=== PATIENT | female | born 1980 | race American Indian/Alaskan Native ===

== ENCOUNTER 2018-12-28 14:03 | Emergency (ER) | payer OTHER ==
--- NOTE | 2018-12-28 14:14 | Emergency Department Report ---
Blank Doc - Documentation Documentation: 38-year-old female that presents with right sided abdominal pain. Denies any vaginal bleeding. Stated is 19 weeks . This initial assessment/diagnostic orders/clinical plan/treatment(s) is/are subject to change based on patient's health status, clinical progression and re- assessment by fellow clinical providers in the ED. Further treatment and workup at subsequent clinical providers discretion. Patient/guardians urged not to elope from the ED as their condition may be serious if not clinically assessed and managed. Initial orders include: 1- Patient sent to [facility] for further evaluation and treatment 2- UA 3- labs 4- US OB
[2018-12-28 15:17] LABS: Bacteria,Urine 2+ /HPF (Negative); Bilirubin,Urine NEG (Negative); Blood,Urine NEG (Negative); Color,Urine Yellow (Yellow); Mucus,Urine 1+ /HPF
[2018-12-28 15:34] LABS: Basophils % (Auto) 0.2 % (0.0-1.8); Eosinophils % (Auto) 0.2 % (0.0-4.3); Hematocrit 30.9 % (30.3-42.9); Hemoglobin 10.6 gm/dl (10.1-14.3); Lymphocytes # (Auto) 0.8 K/mm3 (1.2-5.4); Lymphocytes % (Auto) 7.3 % (13.4-35.0); Mean Corpuscular HGB Conc 34 % (30-34); Mean Corpuscular Volume 89 fl (79-97); Monocytes # (Auto) 0.5 K/mm3 (0.0-0.8); Monocytes % (Auto) 5.1 % (0.0-7.3); Platelet Count 216 K/mm3 (140-440); Red Blood Count 3.46 M/mm3 (3.65-5.03); Red Cell Distribution Width 13.5 % (13.2-15.2)
[2018-12-28 15:58] LABS: Alanine Aminotransferase 8 units/L (7-56); Albumin 3.4 g/dL (3.9-5); BUN/Creatinine Ratio 14; Blood Urea Nitrogen 7 mg/dL (7-17); Hemolysis Index 7
[2018-12-28] MEDS ORDERED: ROCEPHIN IM ONE (16:15)
[2018-12-28] MEDS ORDERED: XYLOCAINE 1% MPF 5 mL INFILTRATI ONE (16:15)
--- NOTE | 2018-12-28 16:18 | Ultrasound Report ---
OB ULTRASOUND >= 14 WEEKS FETUS INDICATION: pelvic pain COMPARISON: None TECHNIQUE: Transabdominal ultrasound images. FINDINGS: A single gestation intrauterine is present with cephalic presentation. The placenta is post erior fundal, grade 0 and free of the cervical os. heart tones measure 157 bpm. The cervix mauro sures 3.5 cm. Amniotic fluid volume is qualitatively normal. LAMBERTO was not measured. The intracranial structures, spine, four-chamber heart, diaphragm, umbilical cord, cord inserti on, stomach, kidneys, and bladder show no sonographic abnormality. Biparietal diameter is 4.2 cm which equals 18 weeks 6 days. Head circumference is 16.2 cm which equals 19 weeks 0 days. Abdominal circumference is 13.5 cm which equals 19 weeks 0 days. Femur length is 3.0 cm which equals 19 weeks 2 days. Overall estimated sonographic age is 19 weeks 0 days. EDC: 05/24/2019. HC/AC ratio: 1.2 Cephalic index: 79.2 Estimated weight: 274 g +/- 41 g. Additional findings: Moderate maternal right hydronephrosis is identified. IMPRESSION: Viable single intrauterine as described. No acute abnormality is detected. Moderate maternal right hydronephrosis. Signer Name: Axel Doll Jr, MD Signed: 12/28/2018 4:14 PM Workstation Name: [id number]
--- NOTE | 2018-12-28 17:52 | Emergency Department Report ---
ED Abdominal Pain HPI - General Chief Complaint: Abdominal Pain Stated Complaint: 19 WKS /SIDE PAIN Time Seen by Provider: 12/28/18 14:13 Source: patient Mode of arrival: Ambulatory Limitations: No Limitations - History of Present Illness Initial Comments: pt is a 38-year-old female who presents emergency room with complaints of right flank pain that began 3 days ago. She has associated nausea. She is tolerating by mouth intake. She denies any fever, vomiting, vaginal bleeding, vaginal discharge. She is currently 19 weeks . LNMP was August 05. pt states that she goes to a clinic on [address] but does not know the name of it. - Related Data Previous Rx's Medication Instructions Recorded Last Taken Type Ondansetron [Zofran Odt] 4 mg PO Q8HR PRN #7 tab.rapdis 12/28/18 Unknown Rx cephALEXin [Keflex] 500 mg PO BID 7 Days #14 cap 12/28/18 Unknown Rx Allergies Allergy/AdvReac Type Severity Reaction Status Date / Time No Known Allergies Allergy Unverified 12/28/18 14:06 ED Review of Systems ROS: Stated complaint: 19 WKS /SIDE PAIN Other details as noted in HPI Comment: All other systems reviewed and negative ED Past Medical Hx - Past Medical History Previous Medical History?: No - Surgical History Past Surgical History?: No - Social History Smoking Status: Never Smoker Substance Use Type: None - Medications Home Medications: Home Medications Medication Instructions Recorded Confirmed Last Taken Type Ondansetron [Zofran Odt] 4 mg PO Q8HR PRN #7 tab.rapdis 12/28/18 Unknown Rx cephALEXin [Keflex] 500 mg PO BID 7 Days #14 cap 12/28/18 Unknown Rx ED Physical Exam - General Limitations: No Limitations General appearance: alert, in no apparent distress - Head Head exam: Present: atraumatic, normocephalic - Eye Eye exam: Present: normal appearance - ENT ENT exam: Present: mucous membranes moist - Respiratory Respiratory exam: Present: normal lung sounds bilaterally. Absent: respiratory distress, wheezes, rales, rhonchi, stridor, chest wall tenderness, accessory muscle use, decreased breath sounds, prolonged expiratory - Cardiovascular Cardiovascular Exam: Present: regular rate, normal rhythm, normal heart sounds. Absent: systolic murmur, diastolic murmur, rubs, gallop - GI/Abdominal GI/Abdominal exam: Present: soft, normal bowel sounds. Absent: distended, tenderness, guarding, rebound, rigid - Neurological Exam Neurological exam: Present: alert, oriented X3 - Psychiatric Psychiatric exam: Present: normal affect, normal mood - Skin Skin exam: Present: warm, dry, intact ED Course Vital Signs 12/28/18 12/28/18 14:13 18:09 Temperature 98.4 F Pulse Rate 103 H 91 H Respiratory 16 16 Rate Blood Pressure 94/63 100/61 [Left] O2 Sat by Pulse 99 99 Oximetry - Consultations Consultation #1: 12/28/18 17:57 spoke to Elinor Nichols, certified coder for [employer] who advised that pt may be treated as an outpatient, and that the hydronephrosis on the right side was nor mal, and to have pt follow up with her [facility] in tomorrow and to discuss the importance of tx and follow up to avoid pyelonephritis. ED Medical Decision Making - Lab Data Result diagrams: 12/28/18 15:05 12/28/18 15:05 Lab Results 12/28/18 12/28/18 12/28/18 Range/Units 15:00 15:05 15:05 WBC 10.3 (4.5-11.0) K/mm3 RBC 3.46 L (3.65-5.03) M/mm3 Hgb 10.6 (10.1-14.3) gm/dl Hct 30.9 (30.3-42.9) % MCV 89 (79-97) fl MCH 31 (28-32) pg MCHC 34 (30-34) % RDW 13.5 (13.2-15.2) % Plt Count 216 (140-440) K/mm3 Lymph % (Auto) 7.3 L (13.4-35.0) % Ida % (Auto) 5.1 (0.0-7.3) % Eos % (Auto) 0.2 (0.0-4.3) % Baso % (Auto) 0.2 (0.0-1.8) % Lymph # 0.8 L (1.2-5.4) K/mm3 Ida # 0.5 (0.0-0.8) K/mm3 Eos # 0.0 (0.0-0.4) K/mm3 Baso # 0.0 (0.0-0.1) K/mm3 Seg Neutrophils % 87.2 H (40.0-70.0) % Seg Neutrophils # 9.0 H (1.8-7.7) K/mm3 Sodium 134 L (137-145) mmol/L Potassium 4.0 (3.6-5.0) mmol/L Chloride 98.3 (98-107) mmol/L Carbon Dioxide 22 (22-30) mmol/L Anion Gap 18 mmol/L BUN 7 (7-17) mg/dL Creatinine 0.5 L (0.7-1.2) mg/dL Estimated GFR > 60 ml/min BUN/Creatinine Ratio 14 % Glucose 94 (65-100) mg/dL Calcium 9.0 (8.4-10.2) mg/dL Total Bilirubin 0.30 (0.1-1.2) mg/dL AST 12 (5-40) units/L ALT 8 (7-56) units/L Alkaline Phosphatase 46 (35-129) units/L Total Protein 6.7 (6.3-8.2) g/dL Albumin 3.4 L (3.9-5) g/dL Albumin/Globulin Ratio 1.0 % HCG, Quant (0-4) mIU/mL Urine Color Yellow (Yellow) Urine Turbidity Cloudy (Clear) Urine pH 6.0 (5.0-7.0) Ur Specific [place] 1.019 (1.003-1.030) Urine Protein 30 mg/dl (Negative) mg/dL Urine Glucose (UA) Neg (Negative) mg/dL Urine Ketones Neg (Negative) mg/dL Urine Blood Neg (Negative) Urine Nitrite Pos (Negative) Urine Bilirubin Neg (Negative) Urine Urobilinogen 2.0 (<2.0) mg/dL Ur Leukocyte Esterase Lg (Negative) Urine WBC (Auto) 48.0 H (0.0-6.0) /HPF Urine RBC (Auto) 7.0 (0.0-6.0) /HPF U Epithel Cells (Auto) 8.0 (0-13.0) /HPF Urine Bacteria (Auto) 2+ (Negative) /HPF Urine Mucus 1+ /HPF 12/28/18 Range/Units 15:05 WBC (4.5-11.0) K/mm3 RBC (3.65-5.03) M/mm3 Hgb (10.1-14.3) gm/dl Hct (30.3-42.9) % MCV (79-97) fl MCH (28-32) pg MCHC (30-34) % RDW (13.2-15.2) % Plt Count (140-440) K/mm3 Lymph % (Auto) (13.4-35.0) % Ida % (Auto) (0.0-7.3) % Eos % (Auto) (0.0-4.3) % Baso % (Auto) (0.0-1.8) % Lymph # (1.2-5.4) K/mm3 Ida # (0.0-0.8) K/mm3 Eos # (0.0-0.4) K/mm3 Baso # (0.0-0.1) K/mm3 Seg Neutrophils % (40.0-70.0) % Seg Neutrophils # (1.8-7.7) K/mm3 Sodium (137-145) mmol/L Potassium (3.6-5.0) mmol/L Chloride (98-107) mmol/L Carbon Dioxide (22-30) mmol/L Anion Gap mmol/L BUN (7-17) mg/dL Creatinine (0.7-1.2) mg/dL Estimated GFR ml/min BUN/Creatinine Ratio % Glucose (65-100) mg/dL Calcium (8.4-10.2) mg/dL Total Bilirubin (0.1-1.2) mg/dL AST (5-40) units/L ALT (7-56) units/L Alkaline Phosphatase (35-129) units/L Total Protein (6.3-8.2) g/dL Albumin (3.9-5) g/dL Albumin/Globulin Ratio % HCG, Quant 21101 H (0-4) mIU/mL Urine Color (Yellow) Urine Turbidity (Clear) Urine pH (5.0-7.0) Ur Specific [place] (1.003-1.030) Urine Protein (Negative) mg/dL Urine Glucose (UA) (Negative) mg/dL Urine Ketones (Negative) mg/dL Urine Blood (Negative) Urine Nitrite (Negative) Urine Bilirubin (Negative) Urine Urobilinogen (<2.0) mg/dL Ur Leukocyte Esterase (Negative) Urine WBC (Auto) (0.0-6.0) /HPF Urine RBC (Auto) (0.0-6.0) /HPF U Epithel Cells (Auto) (0-13.0) /HPF Urine Bacteria (Auto) (Negative) /HPF Urine Mucus /HPF - Radiology Data Radiology results: report reviewed OB ULTRASOUND >= 14 WEEKS FETUS INDICATION: pelvic pain COMPARISON: None TECHNIQUE: Transabdominal ultrasound images. FINDINGS: A single gestation intrauterine is present with cephalic presentation. The placenta is posterior fundal, grade 0 and free of the cervical os. heart tones measure 157 bpm. The cervix measures 3.5 cm. Amniotic fluid volume is qualitatively normal. LAMBERTO was not measured. The intracranial structures, spine, four-chamber heart, diaphragm, umbilical cord, cord insertion, stomach, kidneys, and bladder show no sonographic abnormality. Biparietal diameter is 4.2 cm which equals 18 weeks 6 days. Head circumference is 16.2 cm which equals 19 weeks 0 days. Abdominal circumference is 13.5 cm which equals 19 weeks 0 days. Femur length is 3.0 cm which equals 19 weeks 2 days. Overall estimated sonographic age is 19 weeks 0 days. EDC: 05/24/2019. HC/AC ratio: 1.2 Cephalic index: 79.2 Estimated weight: 274 g +/- 41 g. Additional findings: Moderate maternal right hydronephrosis is identified. IMPRESSION: Viable single intrauterine as described. No acute abnormality is detected. Moderate maternal right hydronephrosis. Signer Name: Axel Watts Jr, MD Signed: 12/28/2018 4:14 PM Workstation Name: [id number] Transcribed By: TTR Dictated By: AXEL WATTS JR, MD Electronically Authenticated By: AXEL WATTS JR, MD Signed Date/Time: 12/28/18 1614 - Medical Decision Making pt is a 38-year-old female who presents emergency room with complaints of right flank pain that began 3 days ago. She has associated nausea. She is tolerating by mouth intake. She denies any fever, vomiting, vaginal bleeding, vaginal discharge. She is currently 19 weeks . LNMP was August 05. pt states that she goes to a clinic on [address] but does not know the name of it. VSS. labs are stable. UA shows evidence of UTI. pt given 1g of ceftriaxone. OB US shows Viable single intrauterine as described. No acute abnormality is detected. Moderate maternal right hydronephrosis. spoke to Elinor Nichols, certified coder for [employer] who advised that pt may be treated as an outpatient, and that the hydronephrosis on the right side was normal, and to have pt follow up with her [facility] in tomorrow and to discuss the importance of tx and follow up to avoid pyelonephritis. pt given prescription for zofran and keflex. advised pt to please take medication as prescribed to completion. drink plenty of water. follow up with your [employer] in the next 24 hours. return to the emergency room for any new or worsening symptoms including but not limited to worsening abdominal pain, fever, chills, unable to keep down your antibiotics, etc - Differential Diagnosis UTI, pyelonephritis, nephrolithiasis, round ligament pain Critical care attestation.: If time is entered above; I have spent that time in minutes in the direct care of this critically ill patient, excluding procedure time. ED Disposition Clinical Impression: Right flank pain UTI (urinary tract infection) Qualifiers: Urinary tract infection type: acute cystitis Hematuria presence: without hematuria Qualified Code(s): N30.00 - Acute cystitis without hematuria Disposition: TO HOME OR SELFCARE Is pt being admited?: No Does the pt Need Aspirin: No Condition: Stable Instructions: Urinary Tract Infection in Women (ED), Flank Pain (ED) Additional Instructions: Please take medication as prescribed to completion. drink plenty of water. follow up with your [facility] in the next 24 hours. return to the emergency room for any new or worsening symptoms including but not limited to worsening abdominal pain, fever, chills, unable to keep down your antibiotics, etc Prescriptions: cephALEXin [Keflex] 500 mg PO BID 7 Days #14 cap Ondansetron [Zofran Odt] 4 mg PO Q8HR PRN #7 tab.rapdis PRN Reason: Nausea And Vomiting Referrals: CELSO KATZ, [facility] [Primary Care Provider] - 2-3 Days your, [employer] [Other] - 24 Hours Time of Disposition: 17:58 Print Language: OMANI
[2018-12-28 18:11] VITALS: BP 100/61
== END 2018-12-28 18:09 | disposition home or self-care (01) ==
LOC: ED 14:03
DX: O23.42 Unspecified infection of urinary tract in pregnancy, second trimester (principal); Z3A.19 19 weeks gestation of pregnancy
CPT/HCPCS: 36415; 76805; 80053; 81001; 84702; 85025; 87086; 96372; 99284; J0696

== ENCOUNTER 2019-01-30 20:53 | Emergency (ER) | payer OTHER ==
[2019-01-30 22:03] VITALS: BP 126/58
--- NOTE | 2019-01-30 22:11 | Emergency Department Report ---
Chief Complaint: Fall Stated Complaint: LT ANKLE PAIN FELL 6MNTS PREG - HPI History of Present Illness: 38yo BF c/o L ankle pain after she tripped over a fence which punctured her skin. She also twisted her L ankle x 1 day ago. Swelling, warmth and erythema of L ankle were seen on exam. She was informed of the [place] criteria and told that the benefit vs risk. Upon exam, it was determined that an x-ray was not immediately needed and that further eval will be obtained after triage. - Exam Vital Signs: Vital Signs 01/30/19 21:59 Temperature 98.5 F Pulse Rate 99 H Respiratory 18 Rate Blood Pressure 126/58 O2 Sat by Pulse 100 Oximetry MSE screening note: Focused history and physical exam performed. Due to findings the following was ordered: ED Disposition for MSE Condition: Stable
[2019-01-31] MEDS ORDERED: BOOSTRIX IM ONE (01:13)
--- NOTE | 2019-01-31 01:19 | Emergency Department Report ---
ED Lower Extremity HPI - General Chief Complaint: Fall Stated Complaint: LT ANKLE PAIN FELL 6MNTS PREG Time Seen by Provider: 01/31/19 01:07 Source: patient Mode of arrival: Ambulatory Limitations: No Limitations - History of Present Illness Initial Comments: 38-year-old female presents to ED with left ankle swelling 2 days. States she tripped over a metal fence, which punctured the skin. Patient is unsure if a piece of metal is possibly in her ankle. She reports she is currently 6 months . Patient has redness and swelling near the wound on her ankle. MD Complaint: ankle injury -: days(s) (2) Injury: Ankle: Left Type of Injury: puncture wound Severity: moderate Improves With: immobilization Worsens With: weight bearing, palpation Context: fall Associated Symptoms: swelling - Related Data Previous Rx's Medication Instructions Recorded Last Taken Type Ondansetron [Zofran Odt] 4 mg PO Q8HR PRN #7 tab.rapdis 12/28/18 Unknown Rx cephALEXin [Keflex] 500 mg PO BID 7 Days #14 cap 12/28/18 Unknown Rx cephALEXin [Keflex] 500 mg PO Q12HR 7 Days #14 cap 01/31/19 Unknown Rx Allergies Allergy/AdvReac Type Severity Reaction Status Date / Time No Known Allergies Allergy Verified 01/30/19 21:05 ED Review of Systems ROS: Stated complaint: LT ANKLE PAIN FELL 6MNTS PREG Other details as noted in HPI Comment: All other systems reviewed and negative Constitutional: denies: fever Musculoskeletal: as per HPI ED Past Medical Hx - Past Medical History Previous Medical History?: No - Surgical History Past Surgical History?: No - Social History Smoking Status: Never Smoker - Medications Home Medications: Home Medications Medication Instructions Recorded Confirmed Last Taken Type Ondansetron [Zofran Odt] 4 mg PO Q8HR PRN #7 tab.rapdis 12/28/18 Unknown Rx cephALEXin [Keflex] 500 mg PO BID 7 Days #14 cap 12/28/18 Unknown Rx cephALEXin [Keflex] 500 mg PO Q12HR 7 Days #14 cap 01/31/19 Unknown Rx ED Physical Exam - General Limitations: No Limitations General appearance: alert, in no apparent distress - Head Head exam: Present: atraumatic, normocephalic - Eye Eye exam: Present: normal appearance, EOMI - ENT ENT exam: Present: mucous membranes moist - Neck Neck exam: Present: normal inspection - Respiratory Respiratory exam: Present: normal lung sounds bilaterally. Absent: respiratory distress - Cardiovascular Cardiovascular Exam: Present: regular rate, normal rhythm - GI/Abdominal GI/Abdominal exam: Absent: distended - Extremities Exam Extremities exam: Present: other (moderate swelling and tenderness to the lateral aspect of the left ankle, with abrasion present on anterior aspect of the ankle and surrounding erythema) - Neurological Exam Neurological exam: Present: alert, oriented X3. Absent: motor sensory deficit - Psychiatric Psychiatric exam: Present: normal affect, normal mood - Skin Skin exam: Present: warm, dry, erythema (to left ankle) ED Course Vital Signs 01/30/19 21:59 Temperature 98.5 F Pulse Rate 99 H Respiratory 18 Rate Blood Pressure 126/58 O2 Sat by Pulse 100 Oximetry ED Lower Extremity MDM - Radiology Data Radiology results: report reviewed, image reviewed - Medical Decision Making X-rays are negative for any acute fracture, dislocation or foreign body. She sustained abrasions to the ankle, with resulting cellulitis present. Tetanus given here in ED. Patient given prescription for Keflex, as she is currently 6 months . Patient advised to use Tylenol for pain. Return precautions given. Outpatient follow-up advised. - Differential Diagnosis fracture, sprain, foreign-body, cellulitis Critical care attestation.: If time is entered above; I have spent that time in minutes in the direct care of this critically ill patient, excluding procedure time. ED Disposition Clinical Impression: Left ankle sprain, Cellulitis of left ankle Disposition: -01 TO HOME OR SELFCARE Is pt being admited?: No Condition: Stable Instructions: Ankle Sprain (ED), Cellulitis (ED) Prescriptions: cephALEXin [Keflex] 500 mg PO Q12HR 7 Days #14 cap Referrals: PITER VALDOVINOS MD [Primary Care Provider] - 3-5 Days PRIMARY CARE, [Referring] - 3-5 Days Forms: Work/School Release Form(ED) Time of Disposition: 02:00
--- NOTE | 2019-01-31 01:45 | XRay Report ---
LEFT ANKLE, 3 VIEWS 01/31/2019 INDICATION / CLINICAL INFORMATION: injury, swelling, pain. COMPARISON: None available. FINDINGS: Soft tissue swelling is identified laterally. No acute fracture or dislocation. Signer Name: Tyshawn Hawk MD Signed: 01/31/2019 1:41 AM Workstation Name: [id number]
== END 2019-01-31 02:15 | disposition home or self-care (01) ==
LOC: ED 20:53
DX: O9A.212 Injury, poisoning and certain other consequences of external causes complicating pregnancy, second trimester (principal); S91.032A Puncture wound without foreign body, left ankle, initial encounter; Z79.899 Other long term (current) drug therapy; Z3A.24 24 weeks gestation of pregnancy; W26.8XXA Contact with other sharp object(s), not elsewhere classified, initial encounter; Y93.89 Activity, other specified; Y92.89 Other specified places as the place of occurrence of the external cause; Y99.8 Other external cause status
CPT/HCPCS: 90471; 90715

== ENCOUNTER 2019-06-17 15:12 | Emergency (ER) | payer OTHER ==
[2019-06-17 15:22] VITALS: BP 145/90
--- NOTE | 2019-06-17 15:53 | Emergency Department Report ---
ED Eye Problem HPI - General Chief complaint: Eye Problems Stated complaint: RT EYE RED W/SWELLING Time Seen by Provider: 06/17/19 15:47 Source: patient Mode of arrival: Ambulatory Limitations: No Limitations - History of Present Illness Initial comments: 39 yo AA F pt presents with complaints of right eye pain and swelling x yesterday. She rates her pain as a 9/10 in severity. She denies any vision changes, contact lenses, trauma to the eye, or foreign body sensation. -: Sudden, days(s) Onset Description: sudden Location: right eye If Injury: none Severity: severe Severity scale (0 -10): 9 If Pain, Quality: aching, throbbing Consistency: constant Treatments Prior to Arrival: none - Related Data Previous Rx's Medication Instructions Recorded Last Taken Type Ondansetron [Zofran Odt] 4 mg PO Q8HR PRN #7 tab.rapdis 12/28/18 Unknown Rx cephALEXin [Keflex] 500 mg PO BID 7 Days #14 cap 12/28/18 Unknown Rx cephALEXin [Keflex] 500 mg PO Q12HR 7 Days #14 cap 01/31/19 Unknown Rx Erythromycin [Erythromycin Ophth 1 cm OU Q4HR 7 Days #1 tube 06/17/19 Unknown Rx Oint] Ibuprofen [Motrin 800 MG tab] 800 mg PO Q8HR PRN #21 tablet 06/17/19 Unknown Rx cephALEXin [Keflex] 500 mg PO Q8HR 7 Days #21 cap 06/17/19 Unknown Rx Allergies Allergy/AdvReac Type Severity Reaction Status Date / Time No Known Allergies Allergy Verified 01/30/19 21:05 ED Review of Systems ROS: Stated complaint: RT EYE RED W/SWELLING Other details as noted in HPI Constitutional: denies: chills, fever Eyes: eye pain. denies: eye discharge, vision change ENT: denies: ear pain, throat pain, dental pain Respiratory: denies: cough ED Past Medical Hx - Past Medical History Previous Medical History?: No - Surgical History Past Surgical History?: No - Social History Smoking Status: Never Smoker Substance Use Type: None - Medications Home Medications: Home Medications Medication Instructions Recorded Confirmed Last Taken Type Ondansetron [Zofran Odt] 4 mg PO Q8HR PRN #7 tab.rapdis 12/28/18 Unknown Rx cephALEXin [Keflex] 500 mg PO BID 7 Days #14 cap 12/28/18 Unknown Rx cephALEXin [Keflex] 500 mg PO Q12HR 7 Days #14 cap 01/31/19 Unknown Rx Erythromycin [Erythromycin Ophth 1 cm OU Q4HR 7 Days #1 tube 06/17/19 Unknown Rx Oint] Ibuprofen [Motrin 800 MG tab] 800 mg PO Q8HR PRN #21 tablet 06/17/19 Unknown Rx cephALEXin [Keflex] 500 mg PO Q8HR 7 Days #21 cap 06/17/19 Unknown Rx ED Physical Exam - General Limitations: No Limitations General appearance: alert, in no apparent distress - Head Head exam: Present: atraumatic, normocephalic - Eye Eye exam: Present: PERRL, EOMI, other (Mild swelling and erythema noted to right upper eyelid with lateral internal hordeolum. No active drainage noted. Patient denies pain with EOMs). Absent: scleral icterus, conjunctival injection - ENT ENT exam: Present: normal orophraynx, mucous membranes moist - Neck Neck exam: Present: normal inspection, full ROM. Absent: lymphadenopathy - Respiratory Respiratory exam: Absent: respiratory distress - Cardiovascular Cardiovascular Exam: Present: regular rate - Skin Skin exam: Present: warm, dry, intact, erythema. Absent: rash ED Course Vital Signs 06/17/19 15:20 Temperature 98.7 F Pulse Rate 79 Respiratory 18 Rate Blood Pressure 145/90 O2 Sat by Pulse 99 Oximetry ED Medical Decision Making - Medical Decision Making Patient here with complaints of right thigh pain and swelling since yesterday. She denies any trauma to her eye or contact lens wearing. Internal hordeolum noted. Vitals are normal and patient is well-appearing. She is stable for discharge home. Prescription for erythromycin and Keflex given. Recommend follow-up with primary care provider in 3 to 5 days. Discussed importance of warm compresses and strict return precautions in detail with patient who verbalizes understanding Critical care attestation.: If time is entered above; I have spent that time in minutes in the direct care of this critically ill patient, excluding procedure time. ED Disposition Clinical Impression: Hordeolum Qualifiers: Hordeolum type: internum Laterality: right Eyelid: upper Qualified Code(s): H00.021 - Hordeolum internum right upper eyelid Disposition: TO HOME OR SELFCARE Is pt being admited?: No Condition: Stable Instructions: Maira (ED) Prescriptions: Erythromycin [Erythromycin Ophth Oint] 1 cm OU Q4HR 7 Days #1 tube cephALEXin [Keflex] 500 mg PO Q8HR 7 Days #21 cap Ibuprofen [Motrin 800 MG tab] 800 mg PO Q8HR PRN #21 tablet PRN Reason: pain Referrals: PRIMARY CARE, [Referring] - 3-5 Days
== END 2019-06-17 16:08 | disposition home or self-care (01) ==
LOC: ED 15:12
DX: H00.021 Hordeolum internum right upper eyelid (principal); Z79.899 Other long term (current) drug therapy
CPT/HCPCS: 99282

== ENCOUNTER 2020-01-17 00:43 | Emergency (ER) | payer OTHER ==
[2020-01-17 01:09] VITALS: BP 142/87
--- NOTE | 2020-01-17 01:31 | Emergency Department Report ---
ED General Adult HPI - General Chief complaint: Earache Stated complaint: RT EAR PAIN Time Seen by Provider: 01/17/20 01:31 Source: patient Mode of arrival: Ambulatory Limitations: No Limitations - Related Data Previous Rx's Medication Instructions Recorded Last Taken Type Ondansetron [Zofran Odt] 4 mg PO Q8HR PRN #7 tab.rapdis 12/28/18 Unknown Rx cephALEXin [Keflex] 500 mg PO BID 7 Days #14 cap 12/28/18 Unknown Rx cephALEXin [Keflex] 500 mg PO Q12HR 7 Days #14 cap 01/31/19 Unknown Rx Erythromycin [Erythromycin Ophth 1 cm OU Q4HR 7 Days #1 tube 06/17/19 Unknown Rx Oint] Ibuprofen [Motrin 800 MG tab] 800 mg PO Q8HR PRN #21 tablet 06/17/19 Unknown Rx cephALEXin [Keflex] 500 mg PO Q8HR 7 Days #21 cap 06/17/19 Unknown Rx Allergies Allergy/AdvReac Type Severity Reaction Status Date / Time No Known Allergies Allergy Verified 01/30/19 21:05 ED Review of Systems ROS: Stated complaint: RT EAR PAIN Other details as noted in HPI ED Past Medical Hx - Past Medical History Previous Medical History?: No - Surgical History Past Surgical History?: No - Social History Smoking Status: Never Smoker Substance Use Type: None - Medications Home Medications: Home Medications Medication Instructions Recorded Confirmed Last Taken Type Ondansetron [Zofran Odt] 4 mg PO Q8HR PRN #7 tab.rapdis 12/28/18 Unknown Rx cephALEXin [Keflex] 500 mg PO BID 7 Days #14 cap 12/28/18 Unknown Rx cephALEXin [Keflex] 500 mg PO Q12HR 7 Days #14 cap 01/31/19 Unknown Rx Erythromycin [Erythromycin Ophth 1 cm OU Q4HR 7 Days #1 tube 06/17/19 Unknown Rx Oint] Ibuprofen [Motrin 800 MG tab] 800 mg PO Q8HR PRN #21 tablet 06/17/19 Unknown Rx cephALEXin [Keflex] 500 mg PO Q8HR 7 Days #21 cap 06/17/19 Unknown Rx ED Physical Exam - General Limitations: No Limitations ED Course Vital Signs 01/17/20 01:07 Temperature 98.8 F Pulse Rate 71 Respiratory 15 Rate Blood Pressure 142/87 O2 Sat by Pulse 100 Oximetry Critical care attestation.: If time is entered above; I have spent that time in minutes in the direct care of this critically ill patient, excluding procedure time. ED Disposition Condition: Stable Referrals: PRIMARY CARE,MD [Primary Care Provider] - 3-5 Days
== END 2020-01-17 04:10 | disposition left against medical advice (07) ==
LOC: ED 00:43
DX: H92.01 Otalgia, right ear (principal); Z53.21 Procedure and treatment not carried out due to patient leaving prior to being seen by health care provider

== ENCOUNTER 2020-03-01 20:17 | Emergency (ER) | payer OTHER ==
[2020-03-01] MEDS ORDERED: IBUPROFEN 600 MG TAB PO ONE ×2 (20:34)
[2020-03-01 20:58] LABS: Hematocrit 33.7 % (30.3-42.9); Hemoglobin 11.1 gm/dl (10.1-14.3); Mean Corpuscular HGB Conc 33 % (30-34); Mean Corpuscular Volume 88 fl (79-97); Platelet Count 420 K/mm3 (140-440); Red Blood Count 3.83 M/mm3 (3.65-5.03); Red Cell Distribution Width 13.8 % (13.2-15.2)
[2020-03-01 21:09] LABS: Alanine Aminotransferase 10 units/L (7-56); Albumin 3.4 g/dL (3.9-5); BUN/Creatinine Ratio 10; Blood Urea Nitrogen 9 mg/dL (7-17); Calcium 9.1 mg/dL (8.4-10.2); Hemolysis Index 5
[2020-03-01 21:32] LABS: Bacteria,Urine 4+ /HPF (Negative); Bilirubin,Urine NEG (Negative); Blood,Urine SM (Negative); Color,Urine Amber (Yellow); Hyaline Casts,Urine 5 /LPF; Mucus,Urine 3+ /HPF
[2020-03-01] MEDS ORDERED: MORPHINE 4 MG/1 ML INJ IV ONE (21:35)
[2020-03-01] MEDS ORDERED: ONDANSETRON 4 MG/2 ML INJ IV ONE (21:35)
[2020-03-01] MEDS ORDERED: cefTRIAXone/NS 2 GM/100 ML 2 GM/100 ML BAG IV ONE (21:35)
[2020-03-01] MEDS ORDERED: KETOROLAC 30 MG/1 ML INJ IV ONE (21:35)
[2020-03-01 21:38] LABS: HCG Qualitative,Urine Negative (Negative)
--- NOTE | 2020-03-01 21:43 | Emergency Department Report ---
ED Back Pain/Injury HPI - General Chief Complaint: Urogenital-Female Stated Complaint: POSS UTI Time Seen by Provider: 03/01/20 21:33 Source: patient Limitations: No Limitations - History of Present Illness Initial Comments: Chief complaint: " I feel like I have a UTI." HPI: This is a 40-year-old female who presents with left flank pain rating to the left lower quadrant for the past day. Pain is moderate to severe. Feels dull. Gradual onset. No change with movement. Pain is been constant. Denies dysuria. No vomiting. Fever noted in triage. MD Complaint: back pain -: Gradual, days(s) (1) Similar Symptoms Previously: Yes Radiation: abdomen (Left lower quadrant) Severity: moderate Severity scale (0 -10): 8 Quality: dull Consistency: constant Improves With: none Worsens With: none Associated Symptoms: other (Fever noted at triage) - Related Data Previous Rx's Medication Instructions Recorded Last Taken Type Ondansetron [Zofran Odt] 4 mg PO Q8HR PRN #7 tab.rapdis 12/28/18 Unknown Rx cephALEXin [Keflex] 500 mg PO BID 7 Days #14 cap 12/28/18 Unknown Rx cephALEXin [Keflex] 500 mg PO Q12HR 7 Days #14 cap 01/31/19 Unknown Rx Erythromycin [Erythromycin Ophth 1 cm OU Q4HR 7 Days #1 tube 06/17/19 Unknown Rx Oint] Ibuprofen [Motrin 800 MG tab] 800 mg PO Q8HR PRN #21 tablet 06/17/19 Unknown Rx cephALEXin [Keflex] 500 mg PO Q8HR 7 Days #21 cap 06/17/19 Unknown Rx Cefdinir 300 mg PO BID 7 Days #14 capsule 03/01/20 Unknown Rx HYDROcodone/APAP 5-325 [[place] 1 each PO Q6HR PRN #10 tablet 03/01/20 Unknown Rx 5/325] Promethazine [Phenergan] 25 mg PO Q6HR PRN #10 tab 03/01/20 Unknown Rx Allergies Allergy/AdvReac Type Severity Reaction Status Date / Time No Known Allergies Allergy Verified 01/30/19 21:05 ED Review of Systems ROS: Stated complaint: POSS UTI Other details as noted in HPI Comment: All other systems reviewed and negative Constitutional: fever. denies: malaise Respiratory: denies: cough Cardiovascular: denies: chest pain Gastrointestinal: abdominal pain. denies: nausea, vomiting Genitourinary: denies: urgency, dysuria, frequency, hematuria ED Past Medical Hx - Past Medical History Previous Medical History?: No - Surgical History Past Surgical History?: No - Social History Smoking Status: Never Smoker Substance Use Type: None - Medications Home Medications: Home Medications Medication Instructions Recorded Confirmed Last Taken Type Ondansetron [Zofran Odt] 4 mg PO Q8HR PRN #7 tab.rapdis 12/28/18 Unknown Rx cephALEXin [Keflex] 500 mg PO BID 7 Days #14 cap 12/28/18 Unknown Rx cephALEXin [Keflex] 500 mg PO Q12HR 7 Days #14 cap 01/31/19 Unknown Rx Erythromycin [Erythromycin Ophth 1 cm OU Q4HR 7 Days #1 tube 06/17/19 Unknown Rx Oint] Ibuprofen [Motrin 800 MG tab] 800 mg PO Q8HR PRN #21 tablet 06/17/19 Unknown Rx cephALEXin [Keflex] 500 mg PO Q8HR 7 Days #21 cap 06/17/19 Unknown Rx Cefdinir 300 mg PO BID 7 Days #14 capsule 03/01/20 Unknown Rx HYDROcodone/APAP 5-325 [[place] 1 each PO Q6HR PRN #10 tablet 03/01/20 Unknown Rx 5/325] Promethazine [Phenergan] 25 mg PO Q6HR PRN #10 tab 03/01/20 Unknown Rx ED Physical Exam - General Limitations: No Limitations General appearance: alert, in no apparent distress - Head Head exam: Present: atraumatic, normocephalic - Eye Eye exam: Present: normal appearance - ENT ENT exam: Present: mucous membranes moist - Neck Neck exam: Present: normal inspection, full ROM - Respiratory Respiratory exam: Present: normal lung sounds bilaterally. Absent: respiratory distress, wheezes, rales, rhonchi - Cardiovascular Cardiovascular Exam: Present: regular rate, normal rhythm, normal heart sounds. Absent: systolic murmur, diastolic murmur, rubs, gallop - GI/Abdominal GI/Abdominal exam: Present: soft, normal bowel sounds. Absent: distended, tenderness, guarding, rebound - Extremities Exam Extremities exam: Present: normal inspection - Neurological Exam Neurological exam: Present: alert, oriented X3 - Psychiatric Psychiatric exam: Present: normal affect, normal mood - Skin Skin exam: Present: warm, dry, intact, normal color. Absent: rash ED Course Vital Signs 03/01/20 03/01/20 20:32 20:37 Temperature 101.8 F H Pulse Rate 38 L 83 Respiratory 19 Rate Blood Pressure 100/62 O2 Sat by Pulse 100 Oximetry ED Medical Decision Making - Lab Data Result diagrams: 03/01/20 20:34 03/01/20 20:34 Laboratory Results - last 24 hr 03/01/20 03/01/20 03/01/20 20:34 20:34 Unknown WBC 22.7 H RBC 3.83 Hgb 11.1 Hct 33.7 MCV 88 MCH 29 MCHC 33 RDW 13.8 Plt Count 420 Sodium 129 L Potassium 3.0 L Chloride 92.1 L Carbon Dioxide 26 Anion Gap 14 BUN 9 Creatinine 0.9 Estimated GFR > 60 BUN/Creatinine Ratio 10 Glucose 139 H Calcium 9.1 Total Bilirubin 0.50 AST 16 ALT 10 Alkaline Phosphatase 83 Total Protein 7.9 Albumin 3.4 L Albumin/Globulin Ratio 0.8 Urine Color [place] Urine Turbidity Cloudy Urine pH 5.0 Ur Specific Universal 1.021 Urine Protein 100 mg/dl Urine Glucose (UA) Neg Urine Ketones 20 Urine Blood Sm Urine Nitrite Pos Urine Bilirubin Neg Urine Urobilinogen 4.0 Ur Leukocyte Esterase Mod Urine WBC (Auto) 175.0 H Urine RBC (Auto) 9.0 U Epithel Cells (Auto) 30.0 H Urine Bacteria (Auto) 4+ Urine WBC Clumps 2+ Hyaline Casts 5 Urine Mucus 3+ - Radiology Data Radiology results: report reviewed CT ABDOMEN AND PELVIS WITHOUT CONTRAST HISTORY: Fever, left flank pain COMPARISON: None TECHNIQUE: Routine abdominal and pelvic CT exam performed without contrast. Lack of intravenous contrast limits evaluation of the vascular and solid organs.. All CT scans at this location are performed using CT dose reduction for ALARA by means of automated exposure control. FINDINGS: CT ABDOMEN: Lung Bases: No significant abnormality. Liver: No significant abnormality. Biliary: No significant abnormality. Spleen: No significant abnormality. Unenlarged. Pancreas: No significant abnormality. Adrenals: No significant abnormality. Kidneys: No stones, pelvocaliectasis, ureterectasis. No perinephric or periureteral stranding. Lymphatics: No lymphadenopathy. Vasculature: No significant abnormality. Bowel/Peritoneum: No acute abnormality. No free air. No free fluid. Appendix not visualized. No pericecal inflammation. Moderate constipation. CT PELVIC: : No significant abnormality. Lymphatics: No lymphadenopathy. Osseous Structures: No aggressive appearing osseous lesions. Additional Findings: None IMPRESSION: 1. No acute findings. 2. Moderate constipation. - Medical Decision Making Clinical impression: Acute pyelonephritis. Patient received IV ceftriaxone in the emergency department as well as IV analgesia and IV antiemetic. CT abdomen pelvis without contrast obtained to rule out infected kidney stone. Urinalysis confirm UTI. Blood cultures obtained to rule out bacteremia. Patient did have leukocytosis significant at 22.4K Patient tolerated p.o. prior to discharge. I have prescribed cefdinir. Also prescribed [place] and promethazine. Vital Signs - 24 hr 03/01/20 03/01/20 20:32 20:37 Temperature 101.8 F H Pulse Rate 38 L 83 Respiratory 19 Rate Blood Pressure 100/62 O2 Sat by Pulse 100 Oximetry Critical care attestation.: If time is entered above; I have spent that time in minutes in the direct care of this critically ill patient, excluding procedure time. ED Disposition Clinical Impression: Acute pyelonephritis Disposition: DC-01 TO HOME OR SELFCARE Is pt being admited?: No Does the pt Need Aspirin: No Condition: Stable Instructions: Pyelonephritis, Adult Prescriptions: Cefdinir 300 mg PO BID 7 Days #14 capsule HYDROcodone/APAP 5-325 [[place] 5/325] 1 each PO Q6HR PRN #10 tablet PRN Reason: Pain Promethazine [Phenergan] 25 mg PO Q6HR PRN #10 tab PRN Reason: Nausea Referrals: CELSO KATZ NP-C [Primary Care Provider] - 3-5 Days
--- NOTE | 2020-03-01 22:35 | Cat Scan Report ---
CT ABDOMEN AND PELVIS WITHOUT CONTRAST HISTORY: Fever, left flank pain COMPARISON: None TECHNIQUE: Routine abdominal and pelvic CT exam performed without contrast. Lack of intravenous cont rast limits evaluation of the vascular and solid organs.. All CT scans at this location are performed using CT dose reduction for [place]ARA by means of automated exposure control. FINDINGS: CT ABDOMEN: Lung Bases: No significant abnormality. Liver: No significant abnormality. Biliary: No significant abnormality. Spleen: No significant abnormality. Unenlarged. Pancreas: No significant abnormality. Adrenals: No significant abnormality. Kidneys: No stones, pelvocaliectasis, ureterectasis. No perinephric or periureteral stranding. Lymphatics: No lymphadenopathy. Vasculature: No significant abnormality. Bowel/Peritoneum: No acute abnormality. No free air. No free fluid. Appendix not visualized. No peric ecal inflammation. Moderate constipation. CT PELVIC: : No significant abnormality. Lymphatics: No lymphadenopathy. Osseous Structures: No aggressive appearing osseous lesions. Additional Findings: None IMPRESSION: 1. No acute findings. 2. Moderate constipation. Signer Name: Juan Jose Aggarwal MD Signed: 03/01/2020 10:31 PM Workstation Name: [id number]
[2020-03-01 22:47] LABS: Band Neutrophils # (Manual) 1.1 K/mm3; Basophils % (Manual) 0 % (0.0-1.8); Eosinophils % (Manual) 0 % (0.0-4.3); Total Cells Counted 100
[2020-03-01 22:52] LABS: Platelet Estimate Consistent w Auto
[2020-03-02 00:08] VITALS: BP 92/57
== END 2020-03-02 00:06 | disposition home or self-care (01) ==
LOC: ED 20:17
DX: N10 Acute pyelonephritis (principal); Z79.1 Long term (current) use of non-steroidal anti-inflammatories (NSAID); Z79.2 Long term (current) use of antibiotics; Z79.899 Other long term (current) drug therapy
CPT/HCPCS: 36415; 74176; 80053; 81001; 81025; 85007; 85025; 87040; 96365; 96375; 99284; J0696; J1885; J2270; J2405